=== PATIENT | male | born 1980 | race Caucasian/White ===

== ENCOUNTER 2019-07-27 | Emergency (ER) | payer OTHER ==
[~2019-07-27] MED LIST: DEPO-MEDROL80 MG/ML IM; NAPROSYN500 MG PO; NO
[2019-07-27] MEDS ORDERED: PROAIR HFA IN (14:11)
[2019-07-27 14:13] LABS: HEMATOCRIT 46.7 % (39.0-50.0); HEMOGLOBIN 15.7 g/dl (14.0-18.0); IMMATURE GRANULOCYTES 0.3 % (0.0-5.0); MEAN CORPUSCULAR HGB 29.9 pG CALC (26.0-32.0); MEAN CORPUSCULAR HGB CONC 33.6 g/dL CAL (32.0-36.0); NEUT# 4.19 thou/uL (1.82-7.42); RED BLOOD COUNT 5.25 mill/uL (4.70-6.10); RED CELL DISTRI WIDTH 12.2 % (11.5-15.5)
[2019-07-27 14:35] LABS: ANION GAP 12 (6-22 (CALC)); BUN 15 mg/dL (9-20); BUN/CREATININE RATIO 19 (12-20 (CALC)); CARBON DIOXIDE 27 mmol/l (22-30); CHLORIDE 102 mmol/l (95-108); CREATININE 0.8 mg/dL (0.7-1.3); GFR > 60 ML/MIN (>=60 (CALC)); GFR FOR AFR.AMER. > 60 ML/MIN (>=60 (CALC)); POTASSIUM 4.6 mmol/l (3.5-5.1); SODIUM 136 mmol/l (137-146)
[2019-07-27] MEDS ORDERED: DOXYCYC MONO100 M2 PO (14:44)
[2019-07-27] MEDS ORDERED: IPRATROPIUM BR0.02 % PO (14:47)
[2019-07-27] MEDS ORDERED: PREDNISONE50 MG PO (14:55)
--- NOTE | 2019-07-30 13:34 | NUR ---
Notified patient of Covid results (Negative). Advised patient to follow up with PCP or return to ED for urgent needs. Patient states he is feeling "a lot better". Patient verbalizes understanding.
== END 2019-07-27 15:11 | disposition home or self-care (01) | DRG 203 ==
PROVIDERS: Family Medicine
DX: J45.901 Unspecified asthma with (acute) exacerbation (principal); Z20.828 Contact with and (suspected) exposure to other viral communicable diseases

== ENCOUNTER 2019-09-06 09:49 | Emergency (ER) | payer OTHER ==
[~2019-09-06] VITALS: Ht 180.3 cm; Wt 95.0 kg
[~2019-09-06 09:49] MED LIST changes: +DOXYCYC MONO100 M2 PO; +IPRATROPIUM BR0.02 % PO; +PREDNISONE50 MG PO; +PROAIR HFA IN
[2019-09-06 10:18] LABS: HEMATOCRIT 42.9 % (39.0-50.0); HEMOGLOBIN 14.1 g/dl (14.0-18.0); IMMATURE GRANULOCYTES 0.2 % (0.0-5.0); MEAN CELL VOLUME 89.7 fL CALC (80.0-100.0); MEAN CORPUSCULAR HGB 29.5 pG CALC (26.0-32.0); MEAN CORPUSCULAR HGB CONC 32.9 g/dL CAL (32.0-36.0); NEUT# 7.51 thou/uL (1.82-7.42); RED BLOOD COUNT 4.78 mill/uL (4.70-6.10); RED CELL DISTRI WIDTH 12.1 % (11.5-15.5)
[2019-09-06 11:24] LABS: ALBUMIN 4.3 g/dL (3.2-5.0); ALKALINE PHOSPHATASE 84 u/l (38-126); AMYLASE 39 u/l (30-110); ANION GAP 11 (6-22 (CALC)); BILIRUBIN, TOTAL 0.3 mg/dL (0.0-1.4); BUN 14 mg/dL (9-20); BUN/CREATININE RATIO 19 (12-20 (CALC)); CARBON DIOXIDE 27 mmol/l (22-30); CHLORIDE 101 mmol/l (95-108); CREATININE 0.7 mg/dL (0.7-1.3); GFR > 60 ML/MIN (>=60 (CALC)); GFR FOR AFR.AMER. > 60 ML/MIN (>=60 (CALC)); LIPASE 47 u/l (23-300); POTASSIUM 4.2 mmol/l (3.5-5.1); SGOT/AST 20 u/l (17-59); SODIUM 135 mmol/l (137-146); TOTAL PROTEIN 7.2 g/dL (6.3-8.2)
[2019-09-06] MEDS ORDERED: PROTONIX40 M2 PO (14:05)
[2019-09-06] MEDS ORDERED: ULTRAM50 MG PO (14:05)
[2019-09-06 14:18] VITALS: BP 149/87
== END 2019-09-06 14:20 | disposition home or self-care (01) | DRG 392 ==
LOC: ED 09:49
DX: R10.13 Epigastric pain (principal)
CPT/HCPCS: Q9967; S0164

== ENCOUNTER 2019-11-28 13:23 | Emergency (ER) | payer OTHER ==
[~2019-11-28] VITALS: Ht 180.3 cm; Wt 95.0 kg
[~2019-11-28 13:23] MED LIST changes: +PROTONIX40 M2 PO; +ULTRAM50 MG PO
[2019-11-28] MEDS ORDERED: BACTROBAN TOP (15:11)
[2019-11-28] MEDS ORDERED: KEFLEX500 M1 PO (15:11)
[2019-11-28 15:19] VITALS: BP 111/73
== END 2019-11-28 15:19 | disposition home or self-care (01) | DRG 605 ==
LOC: ED 13:23
PROC: 0HQJXZZ Repair Left Upper Leg Skin, External Approach (ICD-10-PCS; principal; 2019-11-28)
DX: S71.112A Laceration without foreign body, left thigh, initial encounter (principal); J45.909 Unspecified asthma, uncomplicated; W29.3XXA Contact with powered garden and outdoor hand tools and machinery, initial encounter; Y93.H9 Activity, other involving exterior property and land maintenance, building and construction; Y92.007 Garden or yard of unspecified non-institutional (private) residence as the place of occurrence of the external cause

== ENCOUNTER 2020-07-13 | Emergency (ER) | payer OTHER ==
[~2020-07-13] MED LIST changes: +BACTROBAN TOP; +KEFLEX500 M1 PO
[2020-07-13 09:19] LABS: HEMATOCRIT 48.1 % (39.0-50.0); HEMOGLOBIN 15.7 g/dl (14.0-18.0); IMMATURE GRANULOCYTES 0.3 % (0.0-5.0); MEAN CELL VOLUME 90.4 fL CALC (80.0-100.0); MEAN CORPUSCULAR HGB 29.5 pG CALC (26.0-32.0); MEAN CORPUSCULAR HGB CONC 32.6 g/dL CAL (32.0-36.0); NEUT# 6.93 thou/uL (1.82-7.42); RED BLOOD COUNT 5.32 mill/uL (4.70-6.10); RED CELL DISTRI WIDTH 12.2 % (11.5-15.5)
[2020-07-13 09:48] LABS: ALBUMIN 4.5 g/dL (3.2-5.0); ALKALINE PHOSPHATASE 83 u/l (38-126); ANION GAP 12 (6-22 (CALC)); BUN 15 mg/dL (9-20); BUN/CREATININE RATIO 20 (12-20 (CALC)); CARBON DIOXIDE 27 mmol/l (22-30); CHLORIDE 99 mmol/l (95-108); CREATININE 0.7 mg/dL (0.7-1.3); GFR > 60 ML/MIN (>=60 (CALC)); GFR FOR AFR.AMER. > 60 ML/MIN (>=60 (CALC)); SGOT/AST 28 u/l (17-59); SODIUM 133 mmol/l (137-146); TOTAL PROTEIN 7.5 g/dL (6.3-8.2)
[2020-07-13 09:51] LABS: BILIRUBIN, TOTAL 0.7 mg/dL (0.0-1.4)
[2020-07-13] MEDS ORDERED: ZPAK PO (10:00)
[2020-07-13] MEDS ORDERED: MEDDOSEPAK PO (10:00)
== END 2020-07-13 10:03 | disposition home or self-care (01) | DRG 203 ==
PROVIDERS: Emergency Medicine
DX: J45.901 Unspecified asthma with (acute) exacerbation (principal); Z20.822 Contact with and (suspected) exposure to COVID-19

== ENCOUNTER 2022-01-23 08:36 | Day surgery (SDC) | payer OTHER ==
[~2022-01-23] VITALS: Ht 175.3 cm; Wt 95.3 kg
[~2022-01-23 08:36] MED LIST changes: +ALBUTERO1 IN; +BREO ELLIPTA 101 INH IN; +MEDDOSEPAK PO; +OMEPRAZOLE DR40 MG; +ZPAK PO
[2022-01-23] MEDS ORDERED: CARAFATE PO (11:38)
[2022-01-23] MEDS ORDERED: PERCOCET 5/321 COMBO PO (11:39)
[2022-01-23 12:31] VITALS: BP 125/83
== END 2022-01-23 12:32 | disposition home or self-care (01) | DRG 419 ==
LOC: ENDO 08:36
PROVIDERS: ATTEND Surgery
PROC: 0FT44ZZ Resection of Gallbladder, Percutaneous Endoscopic Approach (ICD-10-PCS; principal; 2022-01-23)
PROC: 0DB68ZX Excision of Stomach, Via Natural or Artificial Opening Endoscopic, Diagnostic (ICD-10-PCS; 2022-01-23)
DX: K80.10 Calculus of gallbladder with chronic cholecystitis without obstruction (principal); K29.50 Unspecified chronic gastritis without bleeding; K25.9 Gastric ulcer, unspecified as acute or chronic, without hemorrhage or perforation; K21.9 Gastro-esophageal reflux disease without esophagitis; J45.909 Unspecified asthma, uncomplicated; Z79.899 Other long term (current) drug therapy
CPT/HCPCS: J0131

== ENCOUNTER 2023-03-14 07:10 | Emergency (ER) | payer OTHER ==
[~2023-03-14] VITALS: Ht 175.3 cm; Wt 99.7 kg
[~2023-03-14 07:10] MED LIST changes: +CARAFATE PO; +PERCOCET 5/321 COMBO PO
[2023-03-14 07:14] VITALS: BP 113/83
[2023-03-14 07:48] LABS: BASO% 0.1 % (0-3); HEMATOCRIT 49.7 % (39.0-50.0); HEMOGLOBIN 17.1 g/dl (14.0-18.0); IMMATURE GRANULOCYTES 0.3 % (0.0-5.0); LYMPH% 6.2 % (15-41); MEAN CORPUSCULAR HGB 30.3 pG CALC (26.0-32.0); MEAN CORPUSCULAR HGB CONC 34.4 g/dL CAL (32.0-36.0); MONO% 6.7 % (2-13); NEUT# 11.68 thou/uL (1.82-7.42); NEUT% 86.7 % (42-76); RED BLOOD COUNT 5.65 mill/uL (4.70-6.10)
[2023-03-14 07:49] VITALS: BP 121/74
[2023-03-14 08:00] VITALS: BP 118/76
[2023-03-14 08:08] LABS: ALBUMIN 4.4 g/dL (3.2-5.0); ALKALINE PHOSPHATASE 71 u/l (38-126); BILIRUBIN, TOTAL 0.4 mg/dL (0.2-1.3); BUN 16 mg/dL (9-20); BUN/CREATININE RATIO 17 (12-20 (CALC)); CARBON DIOXIDE 25 mmol/l (22-30); CHLORIDE 96 mmol/l (95-108); CREATININE 0.9 mg/dL (0.7-1.3); GFR FOR AFR.AMER. > 60 ML/MIN (>=60 (CALC)); GFR OTHER RACES > 60 ML/MIN (>=60 (CALC)); SODIUM 134 mmol/l (137-146); TOTAL PROTEIN 7.8 g/dL (6.3-8.2)
[2023-03-14 08:09] LABS: ANION GAP 16 (6-22 (CALC)); POTASSIUM 3.2 mmol/l (3.5-5.1); SGOT/AST 36 u/l (17-59)
[2023-03-14 08:15] VITALS: BP 117/73
[2023-03-14] MEDS ORDERED: TAM75CAP PO (08:26)
[2023-03-14 08:30] VITALS: BP 107/72
[2023-03-14 08:33] VITALS: BP 107/72
== END 2023-03-14 08:40 | disposition home or self-care (01) | DRG 195 ==
LOC: ED 07:10
PROVIDERS: Emergency Medicine
DX: J10.1 Influenza due to other identified influenza virus with other respiratory manifestations (principal); E87.6 Hypokalemia; Z20.822 Contact with and (suspected) exposure to COVID-19